=== PATIENT | male | born 1995 | race Caucasian/White ===

== ENCOUNTER 2017-07-18 15:15 | Emergency (ER) | payer SELFPAY ==
[2017-07-18 15:33] VITALS: BP 156/104; PULSE 102; TEMP 98.6; BMI 31.9
--- NOTE | 2017-07-18 15:33 | PDOC ---
Rapid Medical Evaluation Time Seen by Provider: 07/18/17 15:26 Medical Evaluation: Allergies Allergy/AdvReac Type Severity Reaction Status Date / Time Penicillins Allergy Verified 07/18/17 15:26 07/18/17 15:31 I have performed a brief in-person evaluation of this patient. The patient presents with a chief complaint of headaches x 1 week and today became lightheaded and hot while at school. States he felt dizzy and with nausea. Denies loss of consciousness but states he was told that he was pale. Pertinent physical exam finding are NAD, color pink, moist unlabored breathing heart s1 s2 alert and oriented x 3 I have ordered the following: ekg, fsg The patient will proceed to the ED for further evaluation.
[2017-07-18] MEDS ORDERED: ALBUTEROL SO4 2.5/IPRATROPIUM 0.5 INH SOL 3 ML VIAL.NEB. NEB ONE ×2 (16:44→17:26)
[2017-07-18] MEDS ORDERED: METOCLOPRAMIDE HCL INJECTION 10 MG/2 ML VIAL IVPB ONE (16:44)
[2017-07-18] MEDS ORDERED: SODIUM CHLORIDE 1,000 ML IV STA (16:44)
[2017-07-18] MEDS ORDERED: METOCLOPRAMIDE HCL INJECTION 10 MG/2 ML VIAL ONE (17:26)
--- NOTE | 2017-07-18 17:31 | PDOC ---
History of Present Illness - General Chief Complaint: Lightheaded Stated Complaint: FATIGUE, NEAR SYNCOPE Time Seen by Provider: 07/18/17 15:26 - History of Present Illness Initial Comments: 07/18/17 17:33 Patient is a 22-year-old male past medical history of syphilis, who presents she department today for 5 days of subjective fevers, body aches, headaches and a near syncopal episode today. Patient states that he was sitting in his teacher 's office when he suddenly got lightheaded and his teacher's that he appeared pale. Patient recalls the entire event and did not truly syncopized. Patient states that his coworkers have been ill with the flu the past week. He states that for the past week he has had constitutional symptoms including subjective fevers, shortness of breath chills, body aches and headache. Patient also admits to itching. He states that he is afraid that his syphilis has returned, as this is how syphilis presented itself in his last relapse. Would like to be tested at this time as well as have other STD testing. Patient denies chest pain , earache, sore throat, abdominal pain, dysuria hematuria. Past History - Travel Traveled outside of the country in the last 30 days: No Close contact w/someone who was outside of country & ill: No - Past Medical History Allergies/Adverse Reactions: Allergies Allergy/AdvReac Type Severity Reaction Status Date / Time Penicillins Allergy Verified 07/18/17 15:26 Home Medications: Ambulatory Orders NK [No Known Home Medication] 07/18/17 Anemia: No Asthma: No Cancer: No Cardiac Disorders: No CVA: No COPD: No CHF: No DVT: No Dementia: No Diabetes: No Dialysis: No Other medical history: DENIES. - Immunization History Immunization Up to Date: No (PENDING PHYSICAL) - Suicide/Smoking/Psychosocial Hx Smoking Status: No Smoking History: Never smoked Number of Cigarettes Smoked Daily: 0 Hx Alcohol Use: No Drug/Substance Use Hx: No Substance Use Type: None Review of Systems - Review of Systems Able to Perform ROS?: Yes Comments:: 07/18/17 17:32 CONSTITUTIONAL: Present: subjective fevers, chills, body aches Absent: fever, chills, diaphoresis, generalized weakness, malaise, loss of appetite HEENT: Absent: rhinorrhea, nasal congestion, throat pain, throat swelling, difficulty swallowing, mouth swelling, ear pain, eye pain, visual Changes CARDIOVASCULAR: Present: lightheadedness Absent: chest pain, loss of consciousness, palpitations , irregular heart rate, peripheral edema RESPIRATORY: Absent: cough, shortness of breath, dyspnea with exertion, orthopnea, wheezing, stridor, hemoptysis GASTROINTESTINAL: Absent: abdominal pain, abdominal distension, nausea, vomiting, diarrhea, constipation, melena, hematochezia GENITOURINARY: Absent: dysuria, frequency, urgency, hesitancy, hematuria, flank pain, genital pain MUSCULOSKELETAL: Absent: myalgia, arthralgia, joint swelling SKIN: Present: itching Absent: rash, pallor HEMATOLOGIC/IMMUNOLOGIC: Absent: easy bleeding, easy bruising, lymphadenopathy, frequent infections ENDOCRINE: Absent: unexplained weight gain, unexplained weight loss, heat intolerance, cold intolerance NEUROLOGIC: Present: headache Absent: focal weakness or paresthesias, dizziness, unsteady gait, seizure, mental status changes, bladder or bowel incontinence PSYCHIATRIC: Absent: anxiety, depression, suicidal or homicidal ideation, hallucinations. Is the patient limited Czech proficient: No *Physical Exam - Vital Signs Last Vital Signs Temp Pulse Resp BP Pulse Ox 98.6 F 102 H 19 156/104 99 07/18/17 15:27 07/18/17 15:27 07/18/17 15:27 07/18/17 15:27 07/18/17 15:27 - Physical Exam Comments: 07/18/17 18:35 GENERAL: Well developed, well nourished. Awake and alert. No acute distress. HEENT: Normocephalic, atraumatic. PERRLA, EOMI. No conjunctival pallor. Sclera are non- icteric. Moist mucous membranes. Oropharynx is clear. NECK: Supple. Full ROM. No JVD. Carotid pulses 2+ and symmetric, without bruits. No thyromegaly. No lymphadenopathy. CARDIOVASCULAR: Regular rate and rhythm. No murmurs, rubs, or gallops. Distal pulses are 2+ and symmetric. PULMONARY: No evidence of respiratory distress. Lungs clear to auscultation bilaterally. No wheezing, rales or rhonchi. ABDOMINAL: Soft. Non-tender. Non-distended. No rebound or guarding. No organomegaly. Normoactive bowel sounds. MUSCULOSKELETAL Normal range of motion at all joints. No bony deformities or tenderness. No CVA tenderness. EXTREMITIES: No cyanosis. No clubbing. No edema. No calf tenderness. SKIN: Warm and dry. Normal capillary refill. No rashes. No jaundice. NEUROLOGICAL: Alert, awake, appropriate. Cranial nerves 2-12 intact. No deficits to light touch and temperature in face, upper extremities and lower extremities. No motor deficits in the in face, upper extremities and lower extremities. Normoreflexic in the upper and lower extremities. Normal speech. Toes are down- going bilaterally. Gait is normal without ataxia. PSYCHIATRIC: Cooperative. Good eye contact. Appropriate mood and affect. ED Treatment Course - LABORATORY CBC & Chemistry Diagram: 07/18/17 16:00 07/18/17 16:00 Medical Decision Making - Medical Decision Making 07/18/17 17:35 Patient is a 22-year-old male with past medical history of syphilis, her presents emergency department for 5 days flulike symptoms as well as a near syncopal episode today EKG obtained in triage appears with no acute findings. Most likely near syncopal episode due to vasovagal or viral syndrome. We'll obtain lab work to rule out other causes. We'll also perform requesting STD testing including HIV and syphilis at this time. 1.basic labs, urine 2.EKG 3.IV fluids, Reglan and Benadryl for headache, DuoNeb 4.reevaluate EKG rate 80 bpm, normal sinus rhythm, early repolarization in leads V2 and V3. No acute ST-T wave changes her last normal intervals 07/18/17 18:38 Basic lab work appears within normal limits, mild leukocytosis at 10.5 however no shift. Lab work otherwise unremarkable, troponin negative. 07/18/17 19:00 HIV testing negative at this time. Pt. feeling better and would like to be discharged. Informed pt that his syphilis testing will be done tomorrow and he should call back for his results. Return precautions given , pt understands all d/c instructions and all questions were answered. *DC/Admit/Observation/Transfer Diagnosis at time of Disposition: Near syncope - Discharge Dispostion Disposition: HOME Condition at time of disposition: Stable Admit: No - Referrals Referrals: Starr Weiner [Primary Care Provider] - - Patient Instructions Printed Discharge Instructions: DI for Syncope in Adults (Fainting) Additional Instructions: 07/18/17 1. As discussed, a screening test for the HIV virus was performed today. Your HIV test is Negative (normal). 2. As discussed, if you engaged in high risk-behavior in the three (3) months prior to this test, you could still potentially be at risk and you will need to be re-tested. 3. As discussed, avoid any high risk behavior (such as unprotected sex or needle-sharing) in the future to minimize the chances of jesus HIV. Your lab work and EKG were normal today. You most likely had a near fainting spell due to a viral illness (flu). Please drink plenty of fluids and get plenty of rest. Please call back tomorrow afternoon after for further rest of your test results. He may take Tylenol or Motrin as needed for pain. Please follow-up with your primary care doctor in 1 week. Return to the emergency department if you have worsening headaches, difficulty breathing, nausea, vomiting, fevers, or have any changes in your symptoms. - Post Discharge Activity Forms/Work/School Notes: Back to Work
[2017-07-18 18:03] LABS: ALBUMIN 4.2 g/dl (3.4-5.0); ANION GAP 4 (8-16); BILIRUBIN,TOTAL 0.4 mg/dL (0.2-1.0); BLOOD UREA NITROGEN 13 mg/dL (7-18); CHLORIDE 105 mmol/L (98-107); CO2 30 mmol/L (21-32); GLUCOSE,RANDOM 98 mg/dL (74-106); POTASSIUM 3.8 mmol/L (3.5-5.1); SGOT/AST 18 U/L (15-37); SGPT/ALT 44 U/L (12-78); SODIUM 139 mmol/L (136-145); TOT PROT 7.8 g/dl (6.4-8.2)
[2017-07-18 18:04] LABS: ALK PHOS 98 U/L (45-117)
[2017-07-18 18:09] LABS: URINE APPEARANCE CLEAR; URINE BILIRUBIN NEGATIVE (<2.0 mg/dL); URINE BLOOD 1+ (NEGATIVE); URINE COLOR LTYELLOW; URINE GLUCOSE (UA) NEGATIVE (NEGATIVE); URINE KETONE NEGATIVE (NEGATIVE); URINE LEUK ESTERASE NEGATIVE (NEGATIVE); URINE NITRITE NEGATIVE (NEGATIVE); URINE PROTEIN NEGATIVE (NEGATIVE)
[2017-07-18 18:11] LABS: BASO % 0.3 % (0-2.0); EOS % 0.3 % (0-4.5); HEMATOCRIT 46.2 % (35.4-49); HEMOGLOBIN 15.9 GM/dL (11.7-16.9); LYMPH % 14.1 % (8-40); MCH 30.1 pg (25.7-33.7); MCHC 34.4 g/dl (32.0-35.9); MEAN CELL VOLUME 87.5 fl (80-96); NEUT % 80.3 % (42.8-82.8); PLATELET COUNT 192 K/MM3 (134-434); RBC 5.28 M/mm3 (4.00-5.60); RDW 13.2 % (11.9-15.9); WHITE BLOOD COUNT 10.3 K/mm3 (4.0-10.0)
[2017-07-18 19:05] LABS: EPI CELLS RARE /HPF (FEW); URINE HYALINE CAST 1 /lpf; URINE MUCUS MODERATE
--- NOTE | 2017-07-20 00:18 | EKG ---
Test Reason : Blood Pressure : / mmHG Vent. Rate : 080 BPM Atrial Rate : 080 BPM P-R Int : 192 ms QRS Dur : 082 ms QT Int : 352 ms P-R-T Axes : 070 029 043 degrees QTc Int : 405 ms NORMAL SINUS RHYTHM WITH SINUS ARRHYTHMIA ST ELEVATION, CONSIDER EARLY REPOLARIZATION BORDERLINE ECG NO PREVIOUS ECGS AVAILABLE Confirmed by JARVIS SMITH MD ([id number]) on 07/20/2017 12:18:17 AM Referred By: Confirmed By:JARVIS SMITH MD
[2017-07-20 15:21] LABS: RPR REACTIVE 1:1 (NONREACTIVE)
[2017-07-20 15:23] LABS: TREPONEMA ANTIBODY PREVIOUSLY REACTIVE (NONREACTIVE)
--- NOTE | 2017-07-20 15:57 | PDOC ---
Patient Follow-up (Call Back) - Post ED Follow - Up Condition at time of discharge: Stable Disposition at time of original discharge: HOME Reason for Call Back: Abnwl. Lab - Disposition Additional Instructions/Notes: Received a call from lead today with positive RPR with 1-1 ratio on the titer. Patient had previously had positive RPR was once 1 ratio in June 2013. T palladium is currently pending. Case discussed with Judy Perry who recommends waiting for 2 palladium results before initiating any treatment. The child had ALLERGIC and it would have to be verified with the previous treatment lehman weather through doxycycline or if the patient was desensitized to penicillin and treated with penicillin. I will defer any treatment until T platelet results have returned.
== END 2017-07-18 19:05 | disposition home or self-care (01) ==
LOC: JER 15:15
PROC: 3E033GC Introduction of Other Therapeutic Substance into Peripheral Vein, Percutaneous Approach (ICD-10-PCS; principal; 2017-07-18)
PROC: 3E033GC Introduction of Other Therapeutic Substance into Peripheral Vein, Percutaneous Approach (ICD-10-PCS; 2017-07-18)
PROC: 3E0F7GC Introduction of Other Therapeutic Substance into Respiratory Tract, Via Natural or Artificial Opening (ICD-10-PCS; 2017-07-18)
DX: R55 Syncope and collapse (principal); Z87.438 Personal history of other diseases of male genital organs; Z86.19 Personal history of other infectious and parasitic diseases; Z11.3 Encounter for screening for infections with a predominantly sexual mode of transmission; Z88.0 Allergy status to penicillin
CPT/HCPCS: 36415; 80053; 81003; 81015; 82550; 82553; 84484; 85025; 86593; 86780; 87086; 87389; 87491; 87591; 93005; 93010; 99283-25; J7030

== ENCOUNTER 2018-05-26 23:34 | Emergency (ER) | payer SELFPAY ==
[2018-05-27 00:22] VITALS: BP 151/81; PULSE 99; TEMP 98; BMI 30.4
[2018-05-27] MEDS ORDERED: METOCLOPRAMIDE HCL 10 MG TABLET (FP) PO ONE ×2 (00:54→01:33)
[2018-05-27] MEDS ORDERED: IBUPROFEN 600 MG TABLET (FP) PO ONE ×2 (00:54→01:33)
--- NOTE | 2018-05-27 00:59 | PDOC ---
History of Present Illness - General Chief Complaint: Headache Stated Complaint: HEADACHE,VOMITTING,BODY PAINS - History of Present Illness Initial Comments: Marco Gambino is a 23yo man with no chronic medical conditions who presents reporting 3 days of headache, nausea, URI symptoms, body aches, and general malaise. He says that he has frequent headaches, but usually they resolve if he takes Excedrin. However, he has tried the Excedrin daily for the past 3 days without resolution of his symptoms. He additionally just feels generally ill with diffuse body aches, mild congestion, and nausea. He says that his mother also felt that he had a tactile fever yesterday, but he did not check his temperature. Mr Gambino was additionally concerned because he was previously diagnsed with syphilis in the past, and he had some of the same symptoms at that time. He does report unprotected sex recently with male partners and is worried that he could have contracted an STD. He denies any penile pain, lesions, ulcers, or discharge and has not noted any of these symptoms on any partners but requests testing while in the ED today. Past History - Past Medical History Allergies/Adverse Reactions: Allergies Allergy/AdvReac Type Severity Reaction Status Date / Time Penicillins Allergy Verified 07/18/17 15:26 Home Medications: Ambulatory Orders NK [No Known Home Medication] 07/18/17 Anemia: No Asthma: No Cancer: No Cardiac Disorders: No CVA: No COPD: No CHF: No DVT: No Dementia: No Diabetes: No Dialysis: No - Immunization History Immunization Up to Date: No (PENDING PHYSICAL) - Suicide/Smoking/Psychosocial Hx Smoking Status: No Smoking History: Never smoked Have you smoked in the past 12 months: No Number of Cigarettes Smoked Daily: 0 Information on smoking cessation initiated: No Hx Alcohol Use: No Drug/Substance Use Hx: No Substance Use Type: None Review of Systems - Review of Systems Comments:: General: Comfortable, no acute distress HEENT: PERRL, EOMI, MMM, voice normal, normal neck ROM, no LAD Cards: RRR, no murmur appreciated Pulm: Comfortable on room air, clear to auscultation bilaterally Abd: Soft, nontender, nondistended Ext: Atraumatic. No LE edema. ROM intact. Strength 5/5 and equal bilaterally Vasc: Extremities WWP. Palpable radial and pedal pulses bilaterally Skin: Normal color, no rashes or lesions Neuro: A&Ox3, CN grossly intact, normal speech, motor/sensory grossly intact and symmetric Psych: Mood appropriate to situation *Physical Exam - Vital Signs Last Vital Signs Temp Pulse Resp BP Pulse Ox 98.0 F 99 H 19 151/81 98 05/26/18 23:35 05/26/18 23:35 05/26/18 23:35 05/26/18 23:35 05/26/18 23:35 - Physical Exam Comments: General: Comfortable, no acute distress HEENT: PERRL, EOMI, MMM, voice normal, normal neck ROM Cards: RRR, no murmur appreciated Pulm: Comfortable on room air, clear to auscultation bilaterally Abd: Soft, nontender, nondistended : No CVA tenderness Ext: Atraumatic. No LE edema. ROM intact. Strength 5/5 and equal bilaterally Vasc: Extremities WWP. Skin: Normal color, no rashes or lesions Neuro: A&Ox3, CN grossly intact, normal speech, motor/sensory grossly intact and symmetric Psych: Mood appropriate to situation Moderate Sedation - Procedure Monitoring Vital Signs: Procedure Monitoring Vital Signs Temperature 98.0 F 05/26/18 23:35 Pulse Rate 99 H 05/26/18 23:35 Respiratory Rate 05/26/18 23:35 Blood Pressure 151/81 05/26/18 23:35 O2 Sat by Pulse Oximetry (%) 98 05/26/18 23:35 Medical Decision Making - Medical Decision Making 05/27/18 00:56 Marco Gambino is a 23yo man with a PMH of syphilis who presents with 3 days of headache, nausea/vomiting, body aches, and URI symptoms. He also reports diffuse mild itching without rash. He has had minimal relief from Excedrin, which he has taken once per day. - Concern for flu given tactile fever, aches, GI and respiratory symptoms but pt declines influenza test - Requesting tests for STDs including HIV, syphilis, GC, chlamydia. No overt symptoms, but states that he had headache and body aches when previously diagnosed with syphilis, and he is concerned as he has been having unprotected sex. - Ibuprofen and reglan for ALEX. Has been able to tolerate PO at home, will PO challenge after meds 05/27/18 02:56 - Continued ALEX, giving acetaminophen 650mg - Requesting note for work as he has missed several days, will provide note - Able to tolerate PO intake in ED, observed drinking several cups of water 05/27/18 03:30 - Mr Gambino feels significantly better after acetaminophen - HIV negative. Pt understands that he will be called if other tests are positive. - Discussed home care, follow up, return precautions. He states understanding and agreement. Discussed with Dr Pinon. Nanette Cortez PGY1 *DC/Admit/Observation/Transfer Diagnosis at time of Disposition: Headache - Discharge Dispostion Condition at time of disposition: Stable - Referrals Referrals: [facility] [place] [Provider Group] - Patient Instructions Printed Discharge Instructions: DI for Headache Additional Instructions: Discharge Instructions: You were seen in the emergency department for a headache, vomiting, and general malaise (ill felling). You also requested STD testing. You were given medication for headache and nausea in the emergency department. Most of your test results will not be back for several days. You will be called if they are positive. Home Care and Follow Up: - You may use acetaminophen (tylenol) 650-1000mg or ibuprofen (Advil, Motrin) 600mg every 6-8 hours as needed for pain. If necessary for continued headache, you may alternate these medications every 3-4 hours. For example, if you take Tylenol at noon, you can take Motrin at 3pm and Tylenol again at 6pm. - Make sure you are drinking plenty of fluids. Dehydration can worsen headaches. Even if you do not feel hungry, drink more than you normally would - at least 6-8 cups per day. Water, juice, sports drinks, tea, or broth are good options. You may wish to avoid dairy products, spicy or greasy foods until you are feeling better. - Make an appointment to see your regular doctor within the next week if you do not start to feel better. - Seek immediate medical care if you are unable to tolerate food or liquids, your symptoms worsen significantly, you have a high fever over 101F, or you have any headaches along with neurological deficits such as one-sided weakness, slurred speech, or confusion. - Post Discharge Activity Forms/Work/School Notes: Back to Work
--- NOTE | 2018-05-27 01:23 | PDOC ---
Attending Attestation - Resident Resident Name: Nanette Cortez - ED Attending Attestation I have performed the following: I have examined & evaluated the patient, The case was reviewed & discussed with the resident, I agree w/resident's findings & plan, Exceptions are as noted - HPI HPI: 05/27/18 02:03 The patient is a 23 year old male, with a significant PMH of syphilis, who presents to the emergency department with 3 days of gradual onset of headache that is constant, pressure like, located on the frontal region of his head associated with mild nausea. pt endorses mild sob and body aches. pt denies any cough, chest pain, nasal congestion, neck pain or stiffness, fever/chills, vision changes, numbness/tingling/weakness, abd pain, back pain, leg swelling, montero. Pt notes that he feels similar to when he last had syphillis a few years ago, deines any rash, dysuria, penile discharge, diarrhea. Last sexual activity was 6 months ago. Pt states he has not been sleepig very much, due to a recent move. sleeping only approx 1-2 hrs a day. Allergies: penicillins - Physicial Exam PE: 05/27/18 02:05 GENERAL: The patient is awake, alert, and fully oriented, Nontoxic - in no acute distress. HEAD: Normocephalic, atraumatic. EYES: extraocular movements intact, sclera anicteric, conjunctiva clear. ENT: Normal voice, Moist mucous membranes. NECK: Normal range of motion, supple LUNGS: Breath sounds equal, clear to auscultation bilaterally. No wheezes, no rhonchi, no rales. HEART: Regular rate and rhythm, normal S1 and S2 without murmur, rub or gallop. ABDOMEN: Soft, nontender, No guarding, no rebound. . No CVA tenderness EXTREMITIES: Normal range of motion NEUROLOGICAL: No facial assymetry, Normal speech, moving all 4 extremities spontaneously and symmetrically PSYCH: Normal mood, normal affect. SKIN: Warm, Dry, normal turgor, - Medical Decision Making 05/27/18 02:07 suspect tension headache no red flags for dangerous headaches normal neuro exam will give reglan/motrin will screen for STDs at pts request, but no recent high risk activity, will defer prophylactic treatment will dc pt with pmd fu return precuations were discussed
[2018-05-27] MEDS ORDERED: ACETAMINOPHEN 325 MG TABLET (FP) PO ONE (02:51)
[2018-05-27] MEDS ORDERED: ACETAMINOPHEN 325 MG TABLET (FP) ONE (02:55)
[2018-05-27] MEDS ORDERED: ACETAMINOPHEN 650 MG/20.3 ML ORAL SOLUTION (CUPS) ONE (02:56)
[2018-05-27] MEDS ORDERED: ACETAMINOPHEN 650 MG/20.3 ML ORAL SOLUTION (CUPS) PO ONE (02:56)
[2018-05-27 10:51] LABS: RPR REACTIVE 1:1 (NONREACTIVE)
[2018-05-27 10:53] LABS: TREPONEMA ANTIBODY PREVIOUSLY REACTIVE (NONREACTIVE)
== END 2018-05-27 03:32 | disposition home or self-care (01) ==
LOC: JER 23:34
DX: R51 Headache (principal)
CPT/HCPCS: 36415; 86593; 86780; 87389; 87491; 87591; 99281-25